=== PATIENT | male | born 1955 | race Caucasian/White ===

== ENCOUNTER 2018-01-16 00:38 | Emergency (ER) | payer OTHER, SELFPAY ==
[2018-01-16 00:40] VITALS: BP 126/86; PULSE 71; RESP 15; TEMP 36.8; O2SAT 99; BMI 25.4
[2018-01-16 00:43] VITALS: O2SAT 99
--- NOTE | 2018-01-16 00:58 | ED.DCSUM_ITS ---
- ER Visit Summary Date of Service: 01/16/18 Chief Complaint: Laceration History of Present Illness: The patient is a 62 M who cut his head on a pipe at work just prior to arrival. Unsure of tetanus status. No other injuries. No loss of consciousness. No blood thinner use. Physical Examination: 5 cm laceration to the left parietal. No significant active bleeding. No foreign bodies visualized. The remainder of his head and neck are atraumatic and nontender. No focal neurologic abnormalities. Test Results: None indicated Emergency Department Course and Treatment: Wound has been cleaned and antibiotic ointment was applied. I explored the wound. No evidence of foreign bodies. Wound was closed with 8 gamaliel. He will follow-up with [facility]. Return for any complications. Treatment Plan: As above Disposition: Discharged Impression: 1. Scalp laceration 5 cm This note was generated with [email or web address] dictation software. It may contain incorrect words, spelling, and punctuation that were not noted in review of the chart prior to signing ED Disposition - Plan for ED Patient: Chief Complaint: Head Injury Referrals: NOT,DEFINED [Primary Care Provider] -
--- NOTE | 2018-01-16 00:58 | DCINST.ED_ITS ---
ED Disposition - Plan for ED Patient: Chief Complaint: Head Injury Instructions: ED Laceration Scalp Stitch Or Stap Referrals: Corporate,[facility] [GROUP OF PHYSICIANS] -
--- NOTE | 2018-01-16 00:58 | ED.DEP ---
ED Disposition - Plan for ED Patient: Chief Complaint: Head Injury Instructions: ED Laceration Scalp Stitch Or Stap Referrals: [facility] [GROUP OF PHYSICIANS] -
[2018-01-16] MEDS: Diphth,Pertuss(Acell),Tet Vac 0.5 ML Vial IM (01:05)
[2018-01-16 01:36] VITALS: BP 139/78; PULSE 81; RESP 20; O2SAT 97
--- NOTE | 2018-01-16 01:37 | ED.RN ---
THIS NURSE REVIEWED D/C INSTRUCTIONS WITH PT. PT VERBALIZED UNDERSTANDING OF INSTRUCTIONS. PT DENIES FURTHER NEEDS OR QUESTIONS AT THIS TIME. PT AMBULATES FROM ROOM ON OWN WITHOUT ASSISTANCE FROM STAFF
== END 2018-01-16 01:37 | disposition home or self-care (01) ==
LOC: ED 01:05
PROVIDERS: Emergency Provider Emergency Medicine
DX: S01.01XA Laceration without foreign body of scalp, initial encounter (principal); W22.09XA Striking against other stationary object, initial encounter; Y93.89 Activity, other specified; Y92.89 Other specified places as the place of occurrence of the external cause; Y99.0 Civilian activity done for income or pay
CPT/HCPCS: 12002; 90471; 90715; 99284